=== PATIENT | female | born 1935 | race Caucasian/White ===

== ENCOUNTER 2017-02-10 06:53 | Emergency (ER) | payer OTHER ==
[~2017-02-10] VITALS: Ht 157.5 cm; Wt 65.3 kg
[2017-02-10 06:59] VITALS: TEMP 36.5; Ht 157.5 cm; Wt 65.3 kg
[2017-02-10] MEDS ORDERED: ACETAMINOPHEN 500 MG TAB PO STA (07:12)
[2017-02-10] MEDS ORDERED: TRAM-10 PO (07:30)
[2017-02-10] MEDS ORDERED: OMEP20CA59 PO (07:30)
[2017-02-10] MEDS ORDERED: FOLI1TAB7 PO (07:31)
[2017-02-10] MEDS ORDERED: PENI-82 PO (07:32)
--- NOTE | 2017-02-10 07:44 | DIAGNOSTIC IMAGING REPORT ---
CHEST ONE VIEW PORTABLE CLINICAL HISTORY: Back and abdominal pain COMPARISON STUDY: No previous studies for comparison. FINDINGS: The heart is borderline enlarged. There is a retrocardiac opacity, possibly representing a hiatal hernia. There is no lobar consolidation. There is no failure. Increased left basal markings are likely atelectatic.[ IMPRESSION: 1. Prominent left basal markings likely atelectatic 2. Possible hiatal hernia 3. No evidence of failure Electronically signed by: Hu Madsen M.D. 02/10/2017 7:43 AM Dictated Date/Time: 02/10/2017 7:42 AM
[2017-02-10 07:47] LABS: BASO % 0.2 %; BASO ABS # 0.01 K/uL (0-0.2); COMPLETE YES; EOS % 6.2 %; HEMATOCRIT 39.3 % (37-47); IG% 0.2 %; LYMPH % 29.2 %; LYMPH ABS # 1.78 K/uL (1.2-3.4); MEAN CELL VOLUME 93.1 fL (80-100); MEAN CORPUSCULAR HEMOGLOBIN 30.8 pg (25-34); MEAN CORPUSCULAR HGB CONC 33.1 g/dl (32-36); MEAN PLATELET VOLUME 9.4 fL (7.4-10.4); MONO % 11.1 %; NEUT % 53.1 %; PLATELET COUNT 248 K/uL (130-400); RED BLOOD COUNT 4.22 M/uL (4.2-5.4)
[2017-02-10 08:04] LABS: BUN/CREATININE RATIO 27.2 (10-20); CALCIUM 9.2 mg/dl (8.5-10.1); CREATININE 0.86 mg/dl (0.60-1.20); MAGNESIUM 2.4 mg/dl (1.8-2.4); POTASSIUM 4.4 mmol/L (3.5-5.1)
[2017-02-10 08:07] LABS: ALB/GLOB RATIO 1.1 (0.9-2)
--- NOTE | 2017-02-10 08:15 | DIAGNOSTIC IMAGING REPORT ---
CT SCAN OF THE ABDOMEN AND PELVIS WITHOUT CONTRAST CLINICAL HISTORY: Bilateral flank pain. Mid back pain. COMPARISON STUDY: No previous studies for comparison. TECHNIQUE: CT scan of the abdomen and pelvis was performed from the lung bases to the proximal femurs. Images are reviewed in the axial, sagittal, and coronal planes. IV contrast was not administered for this examination. A dose lowering technique was utilized adhering to the principles of ALARA. CT DOSE: 679.09 mGy.cm FINDINGS: Lower chest: There is a moderate hiatal hernia. There are basilar atelectatic changes. Liver: The unenhanced liver is normal in size, contour, and attenuation. There is no intrahepatic biliary ductal dilatation. Gallbladder: There is probable cholelithiasis. Spleen: Normal in size and attenuation. Pancreas: There is mild fullness the pancreatic head. This is difficult to assess given the lack of intravenously administered contrast. No ductal dilatation is evident Adrenal glands: Unremarkable. Kidneys: No renal, ureteral, or bladder calculi are visualized. There is a 23 mm right renal cyst. Bowel: There are no transition zones to indicate bowel obstruction. There is no acute diverticulitis. There are no findings to indicate acute appendicitis. Peritoneum: There is no intraperitoneal free air or abdominal ascites. There is small fat-containing umbilical hernia Vasculature: The abdominal aorta is normal in course and caliber. Adenopathy: None. Pelvic viscera: The bladder, and pelvic viscera are unremarkable. Skeletal structures: No destructive osseous lesions are seen. There are multiple lower thoracic and lumbar vertebral body compression deformities IMPRESSION: 1. No evidence of bowel obstruction. No evidence of free air 2. No evidence of acute diverticulitis. No evidence of acute appendicitis. 3. No renal, ureteral, or bladder calculi identified 4. Hiatal hernia with a para esophageal component 5. Mild nonspecific fullness the pancreatic head. No ductal dilatation. 6. Suspected cholelithiasis Electronically signed by: Hu Madsen M.D. 02/10/2017 8:13 AM Dictated Date/Time: 02/10/2017 8:07 AM
--- NOTE | 2017-02-10 08:19 | DIAGNOSTIC IMAGING REPORT ---
LUMBAR SPINE CT CT DOSE: HISTORY: Upper lumbar/low thoracic back pain rad to front of abd TECHNIQUE: Multiaxial CT images of the lumbar spine were performed and reformatted in the sagittal and coronal plane without the use of contrast. A dose lowering technique was utilized adhering to the principles of ALARA. COMPARISON: None. FINDINGS: Multiple mild compression deformities within the superior endplate of L2, L3, L5, and the inferior plate of L4. There is also moderate central compression deformity involving the superior and inferior endplates of T12 which demonstrates up to 50% loss of height centrally. These are technically age-indeterminate but appear to represent old fractures. No definite acute fracture or subluxation. Mild levoscoliosis of the lumbar spine. Suboptimal evaluation the central canal due to the CT technique. However, no definite central canal narrowing. Paraspinal soft tissues are unremarkable. The sacrum appears intact. Moderate disc space narrowing at L5-S1. Mild disc space narrowing at L1-L2 and L2-L3. Small broad-based posterior disc bulges seen throughout the majority of the lumbar spine. IMPRESSION: 1. Multiple compression deformities within the lower thoracic and lumbar spine as described above. These are technically age-indeterminate but appear to represent old fractures. No definite acute fracture or subluxation. 2. Mild to moderate degenerative changes as described above. 3. Mild levoscoliosis. Electronically signed by: Lyndon Hwang M.D. 02/10/2017 8:18 AM Dictated Date/Time: 02/10/2017 8:07 AM
--- NOTE | 2017-02-10 09:33 | DIAGNOSTIC IMAGING REPORT ---
ULTRASOUND RIGHT UPPER QUADRANT ABDOMEN CLINICAL HISTORY: Right flank pain.. COMPARISON STUDY: Abdominal CT dated 02/10/2017. TECHNIQUE: Real-time, grayscale, and color flow sonography of the right upper quadrant of the abdomen was performed. Images are reviewed in the transverse and longitudinal planes. FINDINGS: Liver: The liver is normal in size and echotexture. There is no intrahepatic biliary ductal dilatation. The main portal vein is patent. Gallbladder: Small shadowing calcified gallstones are identified. There is no gallbladder wall thickening or pericholecystic fluid. A sonographic Mehta's sign is reportedly absent. The common bile duct measures up to 0.4 cm in diameter. Pancreas: Not well visualized due to overlying bowel gas. Right kidney: Survey images of the right kidney demonstrate cortical atrophy. There is no hydronephrosis. Ascites: None. IMPRESSION: 1. Cholelithiasis without sonographic evidence of acute cholecystitis. 2. The pancreas was not well visualized due to overlying bowel gas. Electronically signed by: Logan Bruce M.D. 02/10/2017 9:32 AM Dictated Date/Time: 02/10/2017 9:30 AM
[2017-02-10] MEDS ORDERED: CARV12.5 PO (09:37)
--- NOTE | 2017-02-10 10:05 | EMERGENCY ROOM VISIT NOTE ---
ED Visit Note First contact with patient: 07:02 Patient was seen by our PA/LABOR RELATIONS ANALYST. I was involved in the patient's care and did evaluate the patient myself. I was involved in the care throughout the ER stay. The patient presents with upper abdominal pain and back pain. Workup here suggest gallstones and old compression fractures. Laboratory testing is basically unrevealing. The patient is not toxic or febrile. Outpatient follow- up and care was felt appropriate. If worsening, she can return.
[2017-02-10 10:23] VITALS: BP 138/71; PULSE 64; O2SAT 95
--- NOTE | 2017-02-10 11:30 | EMERGENCY ROOM VISIT NOTE ---
History First contact with patient: 07:02 Chief Complaint: ABDOMINAL PAIN Stated Complaint: LWR BACK PAIN ALL AROUND TO FRONT Nursing Triage Summary: patient reports she is having abdominal pain all around the mid abdomen "its like a band" denies any other symptoms at this time. "I just have pain" History of Present Illness The patient is a 81 year old female who presents to the Emergency Room with complaints of lower back pain that is radiating around to the front of her abdomen. The patient describes it as a bandlike sensation starting in her bilateral flanks and coming anteriorly. The patient states the discomfort is improved when she lays back. It worsens with certain position. The patient considers herself usually healthy and is essentially only on blood pressure and GERD medication. She does report a recent upper and lower endoscopy that were normal. She does not have significant chest pain or shortness of breath. No nausea or vomiting. She does not have numbness or paresthesias. She is concerned about her discomfort as it has been going on for 3 weeks and she is planning to travel to [place] next week to see family. She rates her overall discomfort a 5/10. She does take tramadol at home with only minimal improvement of symptoms. She does not recall injury or trauma. Review of Systems More than 10 systems were reviewed and otherwise negative with the exception of history of present illness. Past Medical/Surgical History History of hypertension and GERD Family History No pertinent family history Social History Smoking Status: Never Smoker Current/Historical Medications Scheduled Carvedilol (Coreg), 12.5 MG PO BIDM Folic Acid (Folvite), 1 MG PO DAILY Omeprazole (Prilosec), 20 MG PO DAILY Penicillin V Potassium (Veetids), 500 MG PO TID Scheduled PRN Tramadol (Ultram), 50 MG PO Q8H PRN for Pain Allergies Coded Allergies: Ranitidine (Unverified Allergy, Unknown, VOMITING/RASH, 02/10/17) Physical Exam Vital Signs Date Time Temp Pulse Resp B/P (MAP) Pulse Ox O2 Delivery O2 Flow Rate FiO2 02/10/17 10:23 64 18 138/71 95 02/10/17 08:31 64 16 144/71 96 Room Air 02/10/17 07:42 62 16 143/78 96 Room Air 02/10/17 07:29 62 02/10/17 06:59 36.5 72 16 150/82 96 Room Air Physical Exam VITALS: Vitals are noted on the nurse's note and reviewed by myself. Vital signs stable. GENERAL: Well-developed, well-nourished, white female, who is in no acute distress and resting comfortably. Patient is cooperative with the examination. HEART: Regular rate and rhythm without murmurs gallops or rubs. LUNGS: Clear to auscultation bilaterally without wheezes, rales or rhonchi. No retractions or accessory muscle use. ABDOMEN: Positive normal bowel sounds x 4. Soft, nontender, without masses or organomegaly. No guarding or rebound tenderness. MUSCULOSKELETAL: No muscle atrophy, erythema, or edema noted. Minimal upper lumbar tenderness on palpation. No significant paravertebral spasm. No step- off. No saddle paresthesias. NEURO: Patient was alert and oriented to person place and time. CN II through XII grossly intact. Deep tendon reflexes 2+ throughout. Medical Decision & Procedures ER Provider Diagnostic Interpretation: CHEST ONE VIEW PORTABLE CLINICAL HISTORY: Back and abdominal pain COMPARISON STUDY: No previous studies for comparison. FINDINGS: The heart is borderline enlarged. There is a retrocardiac opacity, possibly representing a hiatal hernia. There is no lobar consolidation. There is no failure. Increased left basal markings are likely atelectatic.[ IMPRESSION: 1. Prominent left basal markings likely atelectatic 2. Possible hiatal hernia 3. No evidence of failure CT SCAN OF THE ABDOMEN AND PELVIS WITHOUT CONTRAST CLINICAL HISTORY: Bilateral flank pain. Mid back pain. COMPARISON STUDY: No previous studies for comparison. TECHNIQUE: CT scan of the abdomen and pelvis was performed from the lung bases to the proximal femurs. Images are reviewed in the axial, sagittal, and coronal planes. IV contrast was not administered for this examination. A dose lowering technique was utilized adhering to the principles of ALARA. CT DOSE: 679.09 mGy.cm FINDINGS: Lower chest: There is a moderate hiatal hernia. There are basilar atelectatic changes. Liver: The unenhanced liver is normal in size, contour, and attenuation. There is no intrahepatic biliary ductal dilatation. Gallbladder: There is probable cholelithiasis. Spleen: Normal in size and attenuation. Pancreas: There is mild fullness the pancreatic head. This is difficult to assess given the lack of intravenously administered contrast. No ductal dilatation is evident Adrenal glands: Unremarkable. Kidneys: No renal, ureteral, or bladder calculi are visualized. There is a 23 mm right renal cyst. Bowel: There are no transition zones to indicate bowel obstruction. There is no acute diverticulitis. There are no findings to indicate acute appendicitis. Peritoneum: There is no intraperitoneal free air or abdominal ascites. There is small fat-containing umbilical hernia Vasculature: The abdominal aorta is normal in course and caliber. Adenopathy: None. Pelvic viscera: The bladder, and pelvic viscera are unremarkable. Skeletal structures: No destructive osseous lesions are seen. There are multiple lower thoracic and lumbar vertebral body compression deformities IMPRESSION: 1. No evidence of bowel obstruction. No evidence of free air 2. No evidence of acute diverticulitis. No evidence of acute appendicitis. 3. No renal, ureteral, or bladder calculi identified 4. Hiatal hernia with a para esophageal component 5. Mild nonspecific fullness the pancreatic head. No ductal dilatation. 6. Suspected cholelithiasis LUMBAR SPINE CT CT DOSE: HISTORY: Upper lumbar/low thoracic back pain rad to front of abd TECHNIQUE: Multiaxial CT images of the lumbar spine were performed and reformatted in the sagittal and coronal plane without the use of contrast. A dose lowering technique was utilized adhering to the principles of ALARA. COMPARISON: None. FINDINGS: Multiple mild compression deformities within the superior endplate of L2, L3, L5, and the inferior plate of L4. There is also moderate central compression deformity involving the superior and inferior endplates of T12 which demonstrates up to 50% loss of height centrally. These are technically age-indeterminate but appear to represent old fractures. No definite acute fracture or subluxation. Mild levoscoliosis of the lumbar spine. Suboptimal evaluation the central canal due to the CT technique. However, no definite central canal narrowing. Paraspinal soft tissues are unremarkable. The sacrum appears intact. Moderate disc space narrowing at L5-S1. Mild disc space narrowing at L1-L2 and L2-L3. Small broad-based posterior disc bulges seen throughout the majority of the lumbar spine. IMPRESSION: 1. Multiple compression deformities within the lower thoracic and lumbar spine as described above. These are technically age-indeterminate but appear to represent old fractures. No definite acute fracture or subluxation. 2. Mild to moderate degenerative changes as described above. 3. Mild levoscoliosis. ULTRASOUND RIGHT UPPER QUADRANT ABDOMEN CLINICAL HISTORY: Right flank pain.. COMPARISON STUDY: Abdominal CT dated 02/10/2017. TECHNIQUE: Real-time, grayscale, and color flow sonography of the right upper quadrant of the abdomen was performed. Images are reviewed in the transverse and longitudinal planes. FINDINGS: Liver: The liver is normal in size and echotexture. There is no intrahepatic biliary ductal dilatation. The main portal vein is patent. Gallbladder: Small shadowing calcified gallstones are identified. There is no gallbladder wall thickening or pericholecystic fluid. A sonographic Mehta's sign is reportedly absent. The common bile duct measures up to 0.4 cm in diameter. Pancreas: Not well visualized due to overlying bowel gas. Right kidney: Survey images of the right kidney demonstrate cortical atrophy. There is no hydronephrosis. Ascites: None. IMPRESSION: 1. Cholelithiasis without sonographic evidence of acute cholecystitis. 2. The pancreas was not well visualized due to overlying bowel gas. Laboratory Results 02/10/17 07:30 Red Blood Count 4.22, Mean Corpuscular Volume 93.1, Mean Corpuscular Hemoglobin 30.8, Mean Corpuscular Hemoglobin Concent 33.1, Mean Platelet Volume 9.4, Neutrophils (%) (Auto) 53.1, Lymphocytes (%) (Auto) 29.2, Monocytes (%) (Auto) 11.1, Eosinophils (%) (Auto) 6.2, Basophils (%) (Auto) 0.2, Neutrophils # (Auto ) 3.24, Lymphocytes # (Auto) 1.78, Monocytes # (Auto) 0.68, Eosinophils # (Auto ) 0.38, Basophils # (Auto) 0.01 02/10/17 07:30 Test 02/10/17 07:30 02/10/17 07:39 White Blood Count 6.10 K/uL (4.8-10.8) Red Blood Count 4.22 M/uL (4.2-5.4) Hemoglobin 13.0 g/dL (12.0-16.0) Hematocrit 39.3 % (37-47) Mean Corpuscular Volume 93.1 fL (80-100) Mean Corpuscular Hemoglobin 30.8 pg (25-34) Mean Corpuscular Hemoglobin Concent 33.1 g/dl (32-36) Platelet Count 248 K/uL (130-400) Mean Platelet Volume 9.4 fL (7.4-10.4) Neutrophils (%) (Auto) 53.1 % Lymphocytes (%) (Auto) 29.2 % Monocytes (%) (Auto) 11.1 % Eosinophils (%) (Auto) 6.2 % Basophils (%) (Auto) 0.2 % Neutrophils # (Auto) 3.24 K/uL (1.4-6.5) Lymphocytes # (Auto) 1.78 K/uL (1.2-3.4) Monocytes # (Auto) 0.68 K/uL (0.11-0.59) Eosinophils # (Auto) 0.38 K/uL (0-0.5) Basophils # (Auto) 0.01 K/uL (0-0.2) RDW Standard Deviation 48.1 fL (36.4-46.3) RDW Coefficient of Variation 14.1 % (11.5-14.5) Immature Granulocyte % (Auto) 0.2 % Immature Granulocyte # (Auto) 0.01 K/uL (0.00-0.02) Anion Gap 6.0 mmol/L (3-11) Est Creatinine Clear Calc Drug Dose 47.1 ml/min Estimated GFR () 74.5 Estimated GFR (Non- 64.3 BUN/Creatinine Ratio 27.2 (10-20) Calcium Level 9.2 mg/dl (8.5-10.1) Magnesium Level 2.4 mg/dl (1.8-2.4) Total Bilirubin 0.4 mg/dl (0.2-1) Aspartate Amino Transf (AST/SGOT) 12 U/L (15-37) Alanine Aminotransferase (ALT/SGPT) 14 U/L (12-78) Alkaline Phosphatase 70 U/L (45-117) Total Protein 7.3 gm/dl (6.4-8.2) Albumin 3.9 gm/dl (3.4-5.0) Globulin 3.4 gm/dl (2.5-4.0) Albumin/Globulin Ratio 1.1 (0.9-2) Lipase 218 U/L (73-393) Bedside Troponin I < 0.030 ng/ml (0-0.045) Medications Administered Medications (Trade) Dose Ordered Sig/Kristal Route Start Time Stop Time Status Last Admin Dose Admin Acetaminophen (Tylenol Tab) 1,000 mg NOW STAT PO 02/10/17 07:12 10/16/17 07:17 DC 02/10/17 07:47 1,000 MG ED Course Physical exam and history were performed. Nursing notes, EMR, and Medication List were personally reviewed. Patient appears to have vague bilateral flank pain wrapping around to her anterior abdomen. The patient does have a positional component to her discomfort. She does not appear toxic on examination. She is not someone who frequents the emergency department and does not have significant past medical history. IV access was established and labs are obtained. The patient was hydrated with normal saline and given Tylenol for comfort. I did elect to perform CT imaging of her abdomen and pelvis with additional lumbar CT to differentiate between an abdominal or musculoskeletal component. I also elected for a 1 view of the chest which was normal. EKG was performed and was normal sinus rhythm at 65 bpm without distinct ischemia or ectopy. The patient's blood work is as above and was reviewed. She does not have a significantly elevated white blood cell count, gross anemia, bandemia, or significant electrolyte imbalance. Lipase and transaminases are nondiagnostic. CT scan of the abdomen and pelvis is without obvious etiology for her symptoms. She does have a little hernia, but did recently have an upper endoscopy. There is suggestion of gallstones, and because of this I did elect to perform an ultrasound. The ultrasound confirmed gallstones but no active cholecystitis. Lumbar spine CT shows multiple old injuries but no acute findings. I discussed the case with my attending physician, Dr. Paredes, who also independently evaluated the patient. Overall the patient appears well for discharge home. Her symptoms most likely correlate with a musculoskeletal etiology, likely from old injuries to her back and ongoing arthritic findings. The patient will be treated conservatively with Advil and Tylenol. She has tramadol at home that she may continue to use. I do recommend the patient have close follow-up with her primary care physician, and recommended that she be seen in the next 2-3 days. The patient was otherwise invited back to the emergency department with any new, worsening, or concerning symptoms. She was pleased with plan of care and voiced understanding of this plan. The chart was completed utilizing [employer] Voice Recognition Software. Grammatical errors, random word insertions, pronoun errors, and incomplete sentences are an occasional consequence of this system due to software limitations, ambient noise, and hardware issues. Any formal questions or concerns about the content, text, or information contained within the body of this dictation should be directly addressed to the provider for clarification. . Medical Decision Differential diagnosis: Etiologies such as appendicitis, diverticulitis, PUD, biliary pathology, UTI, pancreatitis, obstruction, mesenteric ischemia, aortic pathology, infections, inflammatory bowel disease, renal colic, as well as others were entertained. Impression Primary Impression: Back pain Additional Impression: Flank pain Departure Information Dispostion Home / Self-Care Condition GOOD Forms Call Back Authorization, HOME CARE DOCUMENTATION FORM, IMPORTANT VISIT INFORMATION Patient Instructions [facility] Additional Instructions You were seen and evaluated today on an emergency basis only. This is not a substitute for, or an effort to provide, complete comprehensive medical care. It is not possible to recognize and treat all injuries or illnesses in a single emergency department visit. For this reason it is recommended that you followup with your primary care physician next 2-3 days for recheck of your condition. Called the office today to help make the appointment. Let them know you were in the ER. For baseline pain relief you may alternate ibuprofen and acetaminophen every 4 hours for pain control. Take 400 to 600 mg ibuprofen (Advil) and then 4 hours later take 1000 mg acetaminophen (Tylenol). Do not take more than 3000 mg acetaminophen in a single day. You are welcome to return to the emergency department anytime with new, worsening, or concerning symptoms. Problem Qualifiers
== END 2017-02-10 10:26 | disposition home or self-care (01) ==
LOC: C.EDB 06:54
DX: M54.5 Low back pain (principal); R10.9 Unspecified abdominal pain; I10 Essential (primary) hypertension; K21.9 Gastro-esophageal reflux disease without esophagitis; Z98.890 Other specified postprocedural states; Z79.899 Other long term (current) drug therapy